=== PATIENT | male | born 1960 | race African-American/Black ===

== ENCOUNTER 2020-10-16 23:06 | Emergency (ER) | payer MEDICAID ==
[~2020-10-16] VITALS: Ht 188 cm; Wt 79.5 kg
[~2020-10-16 23:06] MED LIST: AMOX1TAB61 PO; CHLO25CA9 PO; CLON0.1T PO
[2020-10-16 23:40] LABS: BASO % 0 % (0-3); EOS % 0 % (0-3); HEMATOCRIT 36.9 % (39.0-53.0); HEMOGLOBIN 12.9 g/dL (13.0-17.5); LYMPH # 1.4 x10^3/uL (1.0-4.8); LYMPH % 10 % (24-48); MEAN CORPUSCULAR HEMOGLOBIN 32 pg (25-35); MEAN CORPUSCULAR HGB CONC 35 g/dL (31-37); MEAN CORPUSCULAR VOLUME 92 fL (79-100); MONO # 1.3 x10^3/uL (0.0-1.1); MONO % 10 % (0-9); NEUT # 10.7 x10^3/uL (1.8-7.7); NEUT % 79 % (31-73); PLATELET COUNT 223 x10^3/uL (140-400); RED BLOOD COUNT 4.03 x10^6/uL (4.30-5.70); RED CELL DISTRIBUTION WIDTH 12.8 % (11.5-14.5); WHITE BLOOD COUNT 13.5 x10^3/uL (4.0-11.0)
[2020-10-16 23:51] LABS: CALCIUM 8.8 mg/dL (8.5-10.1); CREATININE 1.4 mg/dL (0.7-1.3); GFR 62.6; POTASSIUM 3.9 mmol/L (3.5-5.1)
[2020-10-17 00:05] LABS: ALBUMIN 3.3 g/dL (3.4-5.0); C-REACTIVE PROTEIN 96.7 mg/L (0-3.3); TOTAL BILIRUBIN 0.8 mg/dL (0.2-1.0); TOTAL PROTEIN 6.6 g/dL (6.4-8.2)
[2020-10-17] MEDS ORDERED: KETOROLAC 30 MG/ML VIAL. ONE (00:21)
[2020-10-17] MEDS ORDERED: IV NORMAL SALINE 1000ML BAG 1,000 ML IV ONE (00:30)
[2020-10-17] MEDS ORDERED: cefTRIAXone IV Push 1 GM VIAL. IVP ONE (00:30)
--- NOTE | 2020-10-17 00:31 | ED.ADGEN ---
Past Medical History Past Medical History: Depression Past Surgical History: No Surgical History Smoking Status: Current Every Day Smoker Alcohol Use: Heavy Drug Use: Cocaine, Methamphetamine General Adult EDM: Chief Complaint: SHORTNESS OF BREATH HPI: HPI: Patient is a 59-year-old male who presents to the emergency room complaining of body aches, fever, chills, sweats, shortness of breath, sore throat, ear pain, cough. This started last night. He states that this is progressively gotten worse. He is having a lot of bilateral chest pain and tightness. He states that he initially was coughing stuff up but now feels like he cannot get anything up. He did use cocaine and drink a large amount of alcohol yesterday. He has a long history of cocaine abuse. He smokes his cocaine. He denies any IV drug use. He is unsure if he has had any exposures to coronavirus 19. Review of Systems: Review of Systems: Complete ROS is negative unless otherwise documented in HPI Current Medications: Current Medications Medications (Trade) Dose Ordered Sig/Rafaela Start Time Stop Time Status Last Admin Dose Admin Ceftriaxone Sodium (Rocephin) 1 gm 1X ONCE 10/17/20 00:30 10/17/20 00:31 DC 10/17/20 00:31 1 GM Info (CONTRAST GIVEN -- Rx MONITORING) 1 each PRN DAILY PRN 10/17/20 02:30 10/19/20 02:29 Iohexol (Omnipaque 350 Mg/ml) 100 ml 1X ONCE 10/17/20 03:00 10/17/20 03:01 DC 10/17/20 03:19 100 ML Ketorolac Tromethamine (Toradol 30mg Vial) 30 mg 1X ONCE 10/17/20 00:45 10/17/20 00:46 DC 10/17/20 00:37 30 MG Sodium Chloride 1,000 ml @ 1,000 mls/hr 1X ONCE 10/17/20 00:30 10/17/20 01:29 DC 10/17/20 00:31 1,000 MLS/HR Allergies: Allergies: Allergies Coded Allergies Type Severity Reaction Last Updated Verified No Known Drug Allergies 02/01/16 No Physical Exam: PE: General: Awake, alert, NAD. Well Nourished, well hydrated. Cooperative HEENT: Atraumatic, EOMI, PERRL, airway patent, moist oral mucosa Neck: Supple, trachea midline Respiratory: Decreased breath sounds bilaterally with minimal crackles, normal effort, no respiratory distress CV: Tachycardic, no murmur, cap refill <2 GI: Soft, nondistended, nontender, no masses MSK: No obvious deformities Skin: Warm, dry, intact Neuro: A&O x3, speech NL, sensory and motor grossly intact, no focal deficits Psych: Normal affect, normal mood, not suicidal or homicidal Current Patient Data: Labs: Laboratory Tests Test 10/16/20 23:30 White Blood Count 13.5 x10^3/uL (4.0-11.0) H Red Blood Count 4.03 x10^6/uL (4.30-5.70) L Hemoglobin 12.9 g/dL (13.0-17.5) L Hematocrit 36.9 % (39.0-53.0) L Mean Corpuscular Volume 92 fL (79-100) Mean Corpuscular Hemoglobin 32 pg (25-35) Mean Corpuscular Hemoglobin Concent 35 g/dL (31-37) Red Cell Distribution Width 12.8 % (11.5-14.5) Platelet Count 223 x10^3/uL (140-400) Neutrophils (%) (Auto) 79 % (31-73) H Lymphocytes (%) (Auto) 10 % (24-48) L Monocytes (%) (Auto) 10 % (0-9) H Eosinophils (%) (Auto) 0 % (0-3) Basophils (%) (Auto) 0 % (0-3) Neutrophils # (Auto) 10.7 x10^3/uL (1.8-7.7) H Lymphocytes # (Auto) 1.4 x10^3/uL (1.0-4.8) Monocytes # (Auto) 1.3 x10^3/uL (0.0-1.1) H Eosinophils # (Auto) 0.0 x10^3/uL (0.0-0.7) Basophils # (Auto) 0.0 x10^3/uL (0.0-0.2) D-Dimer (Hazel) 3.97 ug/mlFEU (0.00-0.50) H Sodium Level 140 mmol/L (136-145) Potassium Level 3.9 mmol/L (3.5-5.1) Chloride Level 104 mmol/L (98-107) Carbon Dioxide Level 29 mmol/L (21-32) Anion Gap 7 (6-14) Blood Urea Nitrogen 18 mg/dL (8-26) Creatinine 1.4 mg/dL (0.7-1.3) H Estimated GFR (Cockcroft-Gault) 62.6 BUN/Creatinine Ratio 13 (6-20) Glucose Level 118 mg/dL (70-99) H Lactic Acid Level 1.2 mmol/L (0.4-2.0) Calcium Level 8.8 mg/dL (8.5-10.1) Total Bilirubin 0.8 mg/dL (0.2-1.0) Aspartate Amino Transferase (AST) 102 U/L (15-37) H Alanine Aminotransferase (ALT) 67 U/L (16-63) H Alkaline Phosphatase 61 U/L (46-116) Lactate Dehydrogenase 340 U/L (85-227) H Creatine Kinase 5719 U/L (39-308) H Troponin I Quantitative < 0.017 ng/mL (0.000-0.055) C-Reactive Protein, Quantitative 96.7 mg/L (0-3.3) H JJ-Fhm-A-Type Natriuretic Peptide 396 pg/mL (0-124) H Total Protein 6.6 g/dL (6.4-8.2) Albumin 3.3 g/dL (3.4-5.0) L Albumin/Globulin Ratio 1.0 (1.0-1.7) Laboratory Tests 10/16/20 23:30 Laboratory Tests 10/16/20 23:30 Vital Signs: Vital Signs Date Time Temp Pulse Resp B/P (MAP) Pulse Ox O2 Delivery O2 Flow Rate FiO2 10/17/20 04:10 95 18 127/62 (83) 96 Room Air 10/16/20 23:15 99.6 99.6 EKG: EKG: [] Heart Score: Risk Factors: Risk Factors: DM, Current or recent (<one month) smoker, HTN, HLP, family history of CAD, obesity. Risk Scores: Score 0 - 3: 2.5% MACE over next 6 weeks - Discharge Home Score 4 - 6: 20.3% MACE over next 6 weeks - Admit for Clinical Observation Score 7 - 10: 72.7% MACE over next 6 weeks - Early Invasive Strategies Radiology/Procedures: Radiology/Procedures: [] Course & Med Decision Making: Course & Med Decision Making Pertinent Labs and Imaging studies reviewed. (See chart for details) Patient is a 59-year-old male who presents to the emergency room with URI symptoms, cough, shortness of breath, chest pain. At this time there is concern for the novel coronavirus 19. Risk stratifying work-up was ordered including chest x-ray, d-dimer, CPK, CRP, LDH, troponin, ferritin, CBC, CMP. Due to concern of COVID-19 I have discussed the importance of quarantining with the patient. I have discussed with them that they should avoid grocery stores, gas stations, pharmacies, work, friends/family's homes. I discussed with him that it is important that they do not expose themselves to anyone else for the next 14 days. Chest x-ray does show infiltrates at this time and patient will be treated with empiric antibiotics. CT angio was ordered due to an a significantly elevated D-dimer and was negative for pulmonary embolism. I have discussed with the patient the course of the illness and we have discussed strict return precautions. At this time patient does not need admission as they are stable, however it is possible that they may get worse over the next few days and we have discussed the importance of coming back if they develop severe shortness of breath or any other symptoms that they are concerned about. Patient's test results and vitals while in the ED were fully reviewed and discussed with the patient. Patient is stable and at this time does not need admission to the hospital. We have discussed strict return precautions and the importance of following up with their Primary Care Physician. Patient stated understanding and was given an opportunity to ask any questions. Nadia Disclaimer: Dragcalixto Disclaimer: This electronic medical record was generated, in whole or in part, using a voice recognition dictation system. Departure Departure Impression: Primary Impression: Chest pain Additional Impressions: Shortness of breath Suspected 2019 novel coronavirus infection Disposition: 01 DC HOME SELF CARE/HOMELESS Condition: STABLE Referrals: NO PCP (PCP) Patient Instructions: Shortness of Breath Scripts Azithromycin (ZITHROMAX) 250 Mg Tablet 1 PKG PO UD, #6 TAB Prov: CRISTOBAL BENSON MD 10/17/20 Methylprednisolone (MEDROL) 4 Mg Tab.ds.pk 1 PKG PO UD for inflammation, #1 PKG Prov: CRISTOBAL BENSON MD 10/17/20 Problem Qualifiers CRISTOBAL BENSON MD Oct 17, 2020 00:31
[2020-10-17] MEDS ORDERED: KETOROLAC 30 MG/ML VIAL. IVP ONE (00:45)
--- NOTE | 2020-10-17 01:04 | RAD ---
EXAMINATION: CHEST AP ONLY CLINICAL HISTORY: Cough, possible Covid EXAM DATE/TIME: 10/16/2020 11:17 PM COMPARISON: 07/12/2011 FINDINGS: Lines, Tubes, and Devices: None. Cardiomediastinal Silhouette: Within normal limits. Lungs and Pleura: Small right pleural effusion with hazy and patchy opacities in the bilateral lower lung zones, greater on the right. Pulmonary vasculature unremarkable. Bones and Soft Tissues: No acute osseous abnormality. IMPRESSION: Airspace disease in the right greater than left lower lung zones with small right pleural effusion, suspicious for infection. Electronically signed by: Sixto Beckford DO (10/17/2020 1:01 AM) [facility]
[2020-10-17] MEDS ORDERED: CONTRAST GIVEN. MC PRN (02:30)
[2020-10-17] MEDS ORDERED: IOHEXOL 350 MG/ML 100 ML VIAL. IV ONE (03:00)
--- NOTE | 2020-10-17 05:03 | RAD ---
EXAMINATION: CT ANGIOGRAPHY CHEST CLINICAL HISTORY: Shortness of breath, cough, chest pain, elevated d-dimer Technique: Spiral CT acquisition of the chest from the thoracic inlet to the upper abdomen following IV contrast with coronal and sagittal reformatted images also provided for review. CT Dose Reduction Employed: One or more of the following individualized dose reduction techniques were utilized for this examination: 1. Automated exposure control 2. Adjustment of the mA and/or kV according to patient size 3. Use of iterative reconstruction technique. Comparison: None FINDINGS: Limitations: None. Evaluation for Thromboembolic Disease: No evidence of main, lobar, or segmental pulmonary arterial thrombus. Lines, Tubes, and Devices: None. Lung Parenchyma, Pleura, and Airways: Small right pleural effusion with overlying atelectasis. Minimal left basilar atelectasis. No focal consolidation. Central airways patent. Lower Neck, Lymph Nodes, and Mediastinum: Visualized thyroid gland within normal limits. No supraclavicular, axillary, mediastinal, or hilar adenopathy. Heart, Pericardium, and Thoracic Vessels: Cardiac chambers normal in size. No pericardial effusion. Thoracic aorta within normal limits. No coronary artery atherosclerotic calcifications are noted, although the study is not optimized for coronary assessment. Bones and Soft Tissues: Multilevel degenerative changes of the thoracic spine. Upper Abdomen: No abnormality in the visualized upper abdomen. IMPRESSION: No evidence of main, lobar, or segmental pulmonary embolus. Small right pleural effusion with overlying atelectasis. Minimal left basilar atelectasis. Electronically signed by: Sixto Beckford DO (10/17/2020 5:00 AM) [facility]
[2020-10-17] MEDS ORDERED: METH4TAB2 PO (05:11)
[2020-10-17] MEDS ORDERED: AZIT250T PO (05:11)
[2020-10-17 05:40] VITALS: BP 145/79
--- NOTE | 2020-10-17 11:47 | EKG ---
[facility] [address] [place] [address] Test Date: 2020-10-16 Test Time: 23:38:38 Pat Name: SHANTELL ESCOBEDO Department: Room: Gender: M Transport Engineer: : 1960 Requested By: CRISTOBAL BENSON Order Number: [id number] Reading MD: Measurements Intervals [place] Rate: 95 P: 59 NC: 160 QRS: 57 QRSD: 92 T: 27 QT: 366 QTc: 463 Interpretive Statements SINUS RHYTHM ATRIAL PREMATURE COMPLEX(ES) INCOMPLETE RIGHT BUNDLE BRANCH BLOCK NO SPECIFIC ECG ABNORMALITIES RI6.01 No previous ECG available for comparison
== END 2020-10-17 05:50 | disposition home or self-care (01) ==
LOC: ER 23:06
DX: R07.89 Other chest pain (principal); Z20.828 Contact with and (suspected) exposure to other viral communicable diseases; R06.02 Shortness of breath; J02.9 Acute pharyngitis, unspecified; R05 Cough; F32.9 Major depressive disorder, single episode, unspecified; F17.200 Nicotine dependence, unspecified, uncomplicated; F14.10 Cocaine abuse, uncomplicated; F10.10 Alcohol abuse, uncomplicated
CPT/HCPCS: 36415; 71045; 71275; 80053; 82550; 83605; 83615; 83880; 84484; 85025; 85379; 86140; 87040; 93005; 96361; 96374; 96375; 99285; J0696; J1885; J7030; Q9967; U0003